=== PATIENT | female | born 1940 | race Caucasian/White ===

== ENCOUNTER 2017-02-25 09:10 | Emergency (ER) | payer OTHER, BC ==
[~2017-02-25] VITALS: Ht 157.5 cm; Wt 81.7 kg
[~2017-02-25 09:10] MED LIST: AMLODIPINE BESY10 MG; BENICAR40 MG; DOXYCYCLINE 10100 M1; MAXIDE; MAXZIDE-25 MG1 EACH PO; NORVASC5 MG PO; PREVACID; PREVACID15 MG PO; TOPROL XL50 MG PO; ZOCOR 10 MG TAB10 MG; ZOFRAN 4 MG ORAL4 M1 DIS
[2017-02-25] MEDS ORDERED: NORFLEX100 MG PO (11:13)
[2017-02-25] MEDS ORDERED: TRAMADOL 50 MG50 MG PO (11:13)
[2017-02-25 11:27] VITALS: BP 175/81
== END 2017-02-25 11:16 | disposition home or self-care (01) ==
LOC: ER 09:10
DX: S32.018A Other fracture of first lumbar vertebra, initial encounter for closed fracture (principal); I10 Essential (primary) hypertension; F10.99 Alcohol use, unspecified with unspecified alcohol-induced disorder; Z91.041 Radiographic dye allergy status; Z88.0 Allergy status to penicillin; Z88.8 Allergy status to other drugs, medicaments and biological substances; Z87.891 Personal history of nicotine dependence; W01.0XXA Fall on same level from slipping, tripping and stumbling without subsequent striking against object, initial encounter; Y93.89 Activity, other specified; Y92.89 Other specified places as the place of occurrence of the external cause; Y99.8 Other external cause status

== ENCOUNTER → 2019-10-21 | Outpatient (CLI) | payer OTHER, BC ==
[~2019-10-21] VITALS: Ht 154.9 cm; Wt 81.6 kg
[~2019-10-21] MED LIST changes: +ASPIR 8181 M1 PO; -BENICAR40 MG; +BENICAR40 MG PO; +CITRACAL-VIT D1 EACH PO; +DYAZIDE 37.5-21 EACH PO; +MULTI VITAMIN1 EACH PO; +NORFLEX100 MG PO; +TRAMADOL 50 MG50 MG PO; -ZOCOR 10 MG TAB10 MG; +ZOCOR 10 MG TAB10 MG PO
--- NOTE | 2019-10-22 16:46 | P ---
[facility] [place] [address] PROCEDURE REPORT Name: JOYCE MAHONEY Room #: REG [facility].#: [id number] Admission: 10/21/19 Attend Phys: Marcello Rudd MD Discharge: Date of : 42 Report #: [id number] THIS REPORT FOR: cc: Lora Turner MD, Kristin E. MD Thesing, John A. MD ~ CC: Marcello Turner MD OUTPATIENT UPPER ENDOSCOPY REPORT BRIEF HISTORY: The patient is a 79-year-old woman known to me with a history of what she describes as esophageal spasm and also dilation of a Schatzki ring in the past. She has had increasing upper abdominal pain. She has been on Fosamax and discontinued that medicine in August of this past year. It is also noted biopsies ____ years raised the possibility of intestinal metaplasia. Biopsies were negative for H. pylori. She has been on Prevacid and has had improvement, but not complete resolution of her symptoms. POSTOPERATIVE DIAGNOSES: 1. Grade C esophagitis, healing. 2. Small hiatus hernia. 3. Schatzki ring and several very subtle distal esophageal rings. 4. Diffuse gastritis. MEDICATIONS: Deep sedation with propofol per anesthesia. SPECIMENS: 1. Biopsies of gastritis, rule out intestinal metaplasia. 2. Biopsy of distal esophagus, rule out eosinophilic esophagitis. ESTIMATED BLOOD LOSS: 3 mL. PROCEDURE: EGD with biopsy and Pool dilation. FINDINGS: Prior to propofol sedation, the procedure of upper endoscopy discussed with the patient as well as potential risks and its complications. She indicates she understands and desires to proceed. DESCRIPTION OF PROCEDURE: With the patient in left lateral decubitus position, the Olympus video endoscope was inserted in the cervical esophagus under direct vision without difficulty. Examination of this organ through its entire length revealed normal esophageal mucosa into the distal esophagus. However, in distal esophagus, there were erosive changes involving much of the circumference along the GE junction; however, there appears to be healing esophagitis. All the erosive changes were superficial. No strictures or mass lesions were seen. [facility] [address] [place] [address] PROCEDURE REPORT Name: JOYCE MAHONEY Room #: REG [facility].#: [id number] Admission: 10/21/19 Attend Phys: Marcello Rudd MD Discharge: Date of : 42 Report #: [id number] However, intermittently, at the level of the GE junction, a modest Schatzki ring was seen. In addition, on couple of occasions, some very subtle rings, 2-3 were seen above the Schatzki ring. Biopsies were taken of the distal esophagus to evaluate for eosinophilic esophagitis. Scope was advanced in the stomach, which was examined on end view as well as retroflexed views. There was a pattern of gastritis. No ulcers or erosions were seen. Upon retroflexion, the hiatus hernia was seen, but no other abnormalities were identified. Biopsies obtained of the gastric mucosa to evaluate for intestinal metaplasia. The pylorus, duodenal bulb and post ____ sweep were inspected and noted to be unremarkable. At that point, the scope was slowly withdrawn and careful circumferential views confirmed the above findings. The patient tolerated the procedure well. Subsequently, she was dilated with passage of a 52-[place] Pool dilator similar to what was done in the past. The dilator passed without difficulty. CONDITION OF THE PATIENT UPON DISCHARGE: Following procedure, the patient drowsy, aroused, conversant and will be discharged home when fully ambulatory. INSTRUCTIONS TO THE PATIENT AND FAMILY AT THE TIME OF DISCHARGE: We will follow up on biopsies obtained today. However, the patient notes that she has had significant improvement of her symptoms off of Fosamax and now with 30 mg of Prevacid taken daily. I advised her to continue that medication. She is to return to see me in followup in the office in about 8 weeks or so and we will make further recommendations. She calls her episodes esophageal spasm. I suspect it is more likely intermittent food bolus obstruction in the esophagus. However, if she continued to have similar dysphagia in spite of appropriate dilation, esophageal manometry may be a consideration at a later date. <ELECTRONICALLY SIGNED> By: Marcello Rudd MD 10/22/19 1646 [id number] Marcello Rudd MD /nt
--- NOTE | 2019-10-23 17:07 | PATH ---
[facility] [place] [address] PATHOLOGY RPT PROCEDURE Name: JOYCE MAHONEY Room #: REG [facility].#: [id number] Admission: 10/21/19 Date of : 42 Discharge: Report #: [id number] Path Case #: [id number] [facility] Accession Number: [id number] . 01 Material submitted: . PART A: stomach - GASTRIC BX PART B: esophagus - BX DISTAL ESOPHAGUS. Modifiers: distal . 01 Clinical history: . Pre-op diagnosis: History of intestinal metaplasia; dysphagia; reflux Post-op diagnosis: Esophagitis; gastritis; hiatus hernia; Schatzki's ring A. R/O intestinal metaplasia B. R/O eosinophilic esophagitis . 02 Diagnosis: A. Gastric mucosa, gastric R/O intestinal metaplasia, endoscopic biopsy: - Mild chronic active gastritis with intestinal metaplasia. - Negative for atrophy. - Negative for Helicobacter pylori (properly controlled immunohistochemical stain performed). . B. Gastroesophageal mucosa, distal esophagus R/O eosinophilic esophagitis, endoscopic biopsy: - Mild esophagitis showing changes compatible with reflux esophagitis. - No increase in intraepithelial eosinophils. - Negative for intestinal metaplasia (Durham's metaplasia) or dysplasia. (IUV:tory; 10/23/2019) QMS 10/23/2019 1042 Local . 02 Electronically signed: . Dee Ortiz MD, Pathologist NPI- [id number] . 01 Gross description: . A. The specimen is received in formalin, labeled "Joyce Mahoney, gastric biopsy, R/O intestinal metaplasia". Received are multiple (greater than 10) segments of pale nickerson soft tissue ranging in size from 0.1 to 0.5 cm in maximum dimensions. The specimen is submitted entirely in cassette A1. . B. The specimen is received in formalin, labeled "Joyce Mahoney, biopsy distal esophagus, R/O EOE". Received are six segments of pale nickerson soft tissue ranging in size from 0.3 to 0.7 cm in maximum dimensions. The specimen is submitted entirely in cassette B1. (CAA; 10/22/2019) QAC/QAC 10/23/2019 1040 Local . 02 Pathologist provided ICD-10: [address] [address] PATHOLOGY RPT PROCEDURE Name: JOYCE MAHONEY Room #: REG [facility]#: [id number] Admission: 10/21/19 Date of : 42 Discharge: Report #: [id number] Path Case #: [id number] K29.50, K20.9 . 02 CPT . 698025, [id number], [id number] Specimen Comment: A courtesy copy of this report has been sent to [phone], [phone] Specimen Comment: [phone] Specimen Comment: Report sent to and Performed at: [address] [facility], [place] [id number] MD Scott Gomez MD Phone: [phone] Performed at: [address] [facility] [id number] MD Dee Ortiz MD Phone: [phone]
== END | disposition home or self-care (01) ==
LOC: GI 08:33
DX: K22.2 Esophageal obstruction (principal); K29.50 Unspecified chronic gastritis without bleeding; K21.0 Gastro-esophageal reflux disease with esophagitis; K44.9 Diaphragmatic hernia without obstruction or gangrene; I10 Essential (primary) hypertension; E78.5 Hyperlipidemia, unspecified; Z87.19 Personal history of other diseases of the digestive system; Z98.890 Other specified postprocedural states; Z79.899 Other long term (current) drug therapy; Z85.828 Personal history of other malignant neoplasm of skin; Z96.651 Presence of right artificial knee joint; Z90.49 Acquired absence of other specified parts of digestive tract; Z87.891 Personal history of nicotine dependence; Z98.41 Cataract extraction status, right eye; Z98.42 Cataract extraction status, left eye; Z91.041 Radiographic dye allergy status; Z88.0 Allergy status to penicillin; Z79.82 Long term (current) use of aspirin
CPT/HCPCS: 62110; 62900